=== PATIENT | male | born 1995 | race Two or more races ===

== ENCOUNTER 2019-01-17 02:17 | Emergency (ER) | payer SELFPAY ==
[~2019-01-17] VITALS: Ht 180.3 cm; Wt 104.5 kg
--- NOTE | 2019-01-17 02:30 | NUR ---
Pt BIB [facility] with c/o ETOH. Pt was with friends at [employer] and was unable to ambulate s/t ETOH. No trauma per EMS and nothing noted on pt. Pt with episode of vomiting [employer]. Pt will open eyes to pain and answer yes and no questions. Pt very drowsy and unable to ambulate at this time. Will monitor pt for readiness to d/c. Bed in low position and side rails up.
--- NOTE | 2019-01-17 02:50 | NUR ---
Pt's friend, Dana, here to check on pt. Pt requseting she be called at [phone] when pt is ready to be d/c home.
--- NOTE | 2019-01-17 03:30 | NUR ---
Pt sleeping. No acute needs. Pt remains difficult to wake and unable to ambulate.
--- NOTE | 2019-01-17 04:26 | NUR ---
Pt sleeping with resp even and unlabored. VSS.
--- NOTE | 2019-01-17 05:55 | NUR ---
Pt sleeping with resp even and unlabored. VSS. Pt awakes to verbal. Continues to be drowsy and confused. Pt not safe for d/c at this time.
[2019-01-17 07:00] VITALS: BP 104/50
--- NOTE | 2019-01-17 07:01 | NUR ---
Patient is resting comfortably in bed. Report from Mary. Vital Signs within normal limits. No distress noted. All safety measures observed.
--- NOTE | 2019-01-17 07:24 | NUR ---
Pt alert/oriented x 4, can walk steady and understands all discharge instructions. Pt educated that he should not drive, pt verbalized understanding. Pt in stable conditon and says "i'm ready to go home".
== END 2019-01-17 07:36 | disposition home or self-care (01) ==
LOC: ED 07:10
DX: F10.120 Alcohol abuse with intoxication, uncomplicated (principal)
CPT/HCPCS: 99283